=== PATIENT | female | born 1965 | race Caucasian/White ===

== ENCOUNTER 2021-11-13 04:00 | Emergency (ER) | payer SELFPAY ==
[~2021-11-13] VITALS: Ht 167.6 cm; Wt 75.0 kg
[2021-11-13 04:13] VITALS: TEMP 97.7
[2021-11-13 04:55] LABS: BASO # 0.1 K/mm3 (0.0-0.2); BASO % 0.8 % (0.0-2.0); EOS # 0.1 K/mm3 (0.0-0.7); EOS % 1.9 % (0.0-4.0); GRAN # 2.8 K/mm3 (1.4-6.5); GRAN % 43.3 % (42.2-75.2); HEMATOCRIT 40.4 % (37.0-47.0); HEMOGLOBIN 13.4 g/dl (12.5-16.0); LYMPH # 2.9 K/mm3 (1.2-3.4); LYMPH % 44.8 % (20.0-51.0); MEAN CELL VOLUME 87 fl (80.0-100.0); MEAN CORPUSCULAR HEMOGLOBIN 29 pg (27-31); MEAN CORPUSCULAR HGB CONC 33 g/dl (33.0-37.0); MEAN PLATELET VOLUME 10.3 fl (7.4-10.4); MONO # 0.6 K/mm3 (0.1-0.6); PLATELET COUNT 251 K/mm3 (130-400); RED BLOOD COUNT 4.62 M/mm3 (4.10-5.30); REDCELL DISTRIBUTION WIDTH-CV 13.2 % (11.5-14.5)
[2021-11-13 05:12] LABS: ALBUMIN 3.9 gm/dL (3.5-5.0); BILIRUBIN,TOTAL 0.9 mg/dL (0.2-1.2); CALCIUM 8.9 mg/dL (8.4-10.2); CREATININE, serum 0.69 mg/dL (0.57-1.11); POTASSIUM 3.1 mmol/L (3.5-4.5); TOTAL PROTEIN 6.3 gm/dL (6.2-8.1)
[2021-11-13] MEDS ORDERED: PROTONIX 40MG T40 MG PO (06:12)
[2021-11-13] MEDS ORDERED: NORCO 325 MG-51 TAB PO (06:12)
[2021-11-13] MEDS ORDERED: ZOFRAN ODT4 MG PO (06:12)
[2021-11-13 06:25] VITALS: BP 132/77; PULSE 57
== END 2021-11-13 06:30 | disposition home or self-care (01) ==
LOC: COL.ER 04:00
PROVIDERS: Personal Emergency Response Attendant
DX: R10.11 Right upper quadrant pain (principal); R11.0 Nausea; F17.290 Nicotine dependence, other tobacco product, uncomplicated; Z90.49 Acquired absence of other specified parts of digestive tract; Z28.310 Unvaccinated for COVID-19
CPT/HCPCS: J1885; J2405; J7030; Q9967

== ENCOUNTER 2021-11-16 16:11 | Emergency (ER) | payer SELFPAY ==
[~2021-11-16] VITALS: Ht 167.6 cm; Wt 75.0 kg
[~2021-11-16 16:11] MED LIST: NORCO 325 MG-51 TAB PO; PROTONIX 40MG T40 MG PO; ZOFRAN ODT4 MG PO
[2021-11-16 16:49] LABS: BASO # 0.1 K/mm3 (0.0-0.2); BASO % 1.1 % (0.0-2.0); EOS # 0.1 K/mm3 (0.0-0.7); EOS % 2.4 % (0.0-4.0); GRAN # 2.6 K/mm3 (1.4-6.5); GRAN % 48.7 % (42.2-75.2); HEMATOCRIT 44.9 % (37.0-47.0); HEMOGLOBIN 14.9 g/dl (12.5-16.0); LYMPH # 2.2 K/mm3 (1.2-3.4); LYMPH % 39.9 % (20.0-51.0); MEAN CELL VOLUME 87 fl (80.0-100.0); MEAN CORPUSCULAR HEMOGLOBIN 29 pg (27-31); MEAN CORPUSCULAR HGB CONC 33 g/dl (33.0-37.0); MEAN PLATELET VOLUME 10.5 fl (7.4-10.4); MONO # 0.4 K/mm3 (0.1-0.6); MONO % 7.7 % (1.7-9.3); PLATELET COUNT 278 K/mm3 (130-400); RED BLOOD COUNT 5.16 M/mm3 (4.10-5.30); REDCELL DISTRIBUTION WIDTH-CV 13.2 % (11.5-14.5)
[2021-11-16 17:01] LABS: ALANINE AMINOTRANSFERASE 23 U/L (0-55); ALKALINE PHOSPHATASE 50 U/L (40-150); ANION GAP 10 mmol/L (7-16); AST,SGOT 20 U/L (5-34); BILIRUBIN,TOTAL 0.9 mg/dL (0.2-1.2); BLOOD UREA NITROGEN 11 mg/dL (10-20); CALCIUM 9.5 mg/dL (8.4-10.2); CARBON DIOXIDE 25 mmol/L (22-29); CHLORIDE 108 mmol/L (98-107); GLUCOSE 94 mg/dL (70-99); SODIUM 143 mmol/L (136-145)
[2021-11-16 17:16] LABS: C-REACTIVE PROTEIN 0.24 mg/dL (0.00-0.50); LIPASE 15 U/L (8-78)
[2021-11-16] MEDS ORDERED: CYMBALTA 20MG20 MG PO (17:19)
[2021-11-16] MEDS ORDERED: CELEXA40 MG PO (17:20)
[2021-11-16] MEDS ORDERED: WELLBUTRIN 75MG75 MG PO (17:20)
[2021-11-16 17:21] LABS: TROPONIN-I < 0.010 ng/mL (0.00-0.033)
[2021-11-16] MEDS ORDERED: PRIL40 PO (17:21)
[2021-11-16] MEDS ORDERED: TOPAMAX 100MG100 M1 PO (17:21)
[2021-11-16] MEDS ORDERED: PREVACID 15MG15 M1 PO (17:22)
[2021-11-16] MEDS ORDERED: PEPCID 20MG TAB20 MG PO ×2 (17:22→17:23)
[2021-11-16] MEDS ORDERED: SINGULAIR 110 MG/TAB PO (17:23)
[2021-11-16] MEDS ORDERED: ATARAX 25MG25 MG/TAB PO (17:24)
[2021-11-16] MEDS ORDERED: FLONASE NASAL S16 GM NS (17:24)
[2021-11-16] MEDS ORDERED: ZYRTEC 10MG10 MG PO (17:25)
[2021-11-16] MEDS ORDERED: SUDANYL PE5 MG PO (17:25)
[2021-11-16] MEDS ORDERED: NATURAL POTASS595 MG PO (17:26)
[2021-11-16] MEDS ORDERED: MOTRIN 800800 MG/TAB PO (17:26)
[2021-11-16] MEDS ORDERED: ESTROVEN MAX400 MCG PO (17:27)
[2021-11-16] MEDS ORDERED: CARAFATE S1 GM/10 ML PO (20:07)
[2021-11-16 20:45] VITALS: BP 115/78; PULSE 59; TEMP 98.6
== END 2021-11-16 20:45 | disposition home or self-care (01) ==
LOC: COL.ER 16:11
PROVIDERS: Emergency Medicine
DX: R10.13 Epigastric pain (principal); R07.89 Other chest pain; F17.290 Nicotine dependence, other tobacco product, uncomplicated; Z90.49 Acquired absence of other specified parts of digestive tract; Z28.310 Unvaccinated for COVID-19
CPT/HCPCS: C9113; J2405; J7030

== ENCOUNTER → 2021-12-21 | Outpatient (CLI) | payer MEDICAID ==
[~2021-12-21] VITALS: Ht 167.6 cm; Wt 75.6 kg
[~2021-12-21] MED LIST changes: +ADIPEX-P37.5 MG PO; +ASHWAGANDHA500 MG PO; +ASPIRIN 81M81 MG/TA2 PO; +ATARAX 25MG25 MG/TAB PO; +BENTYL 10MG10 MG/CAP PO; +CARAFATE 1GM1 G PO; +CARAFATE S1 GM/10 ML PO; +CELEXA40 MG PO; +CYMBALTA 20MG20 MG PO; +ESTROVEN MAX400 MCG PO; +FLONASE NASAL S16 GM NS; +GLUCOSAMINE MSM1 TAB PO; +MAXZIDE-25MG TA1 TAB PO; +MOTRIN 800800 MG/TAB PO; +NATURAL POTASS595 MG PO; +PEPCID 20MG TAB20 MG PO; +PREVACID 15MG15 M1 PO; +PREVACID 30MG30 M1 PO; +PRIL40 PO; +PROVENTIL0.09 MG/A1 IH; +ROBAXIN 50500 MG/TAB PO; +SINGULAIR 110 MG/TAB PO; +SUDANYL PE5 MG PO; +TOPAMAX 100MG100 M1 PO; +TYLENOL 500MG500 MG PO; +ULTRAM 50MG TAB50 MG PO; +VIVELLE-DO0.0375 MG/ TD; +WELLBUTRIN 75MG75 MG PO; +ZOFRAN 4MG T4 MG/TAB PO; +ZYRTEC 10MG10 MG PO; +[UNRECOGNIZED DRUG - REMARK] PO
[2021-12-21 11:18] VITALS: BP 119/71; PULSE 79; TEMP 98.7
[2021-12-21 12:10] VITALS: BP 111/65; PULSE 76
[2021-12-21 12:11] VITALS: BP 116/69; PULSE 85
[2021-12-21 12:12] VITALS: BP 112/71; PULSE 84
[2021-12-21 12:13] VITALS: BP 118/72; PULSE 81
== END ==
LOC: COL.CARD 10:38
DX: R00.2 Palpitations (principal); R00.1 Bradycardia, unspecified; R06.02 Shortness of breath
CPT/HCPCS: A9500; J2785

== ENCOUNTER 2022-09-28 08:36 | Emergency (ER) | payer MEDICAID ==
[~2022-09-28] VITALS: Ht 167.6 cm; Wt 76.4 kg
[2022-09-28 08:42] VITALS: TEMP 98.1
[2022-09-28 09:29] LABS: BASO # 0.1 K/mm3 (0.0-0.2); BASO % 0.9 % (0.0-2.0); EOS # 0.2 K/mm3 (0.0-0.7); EOS % 2.7 % (0.0-4.0); GRAN # 4.2 K/mm3 (1.4-6.5); GRAN % 60.2 % (42.2-75.2); HEMATOCRIT 43.2 % (37.0-47.0); HEMOGLOBIN 14.4 g/dl (12.5-16.0); LYMPH # 1.9 K/mm3 (1.2-3.4); LYMPH % 27.2 % (20.0-51.0); MEAN CELL VOLUME 87 fl (80.0-100.0); MEAN CORPUSCULAR HEMOGLOBIN 29 pg (27-31); MEAN CORPUSCULAR HGB CONC 33 g/dl (33.0-37.0); MEAN PLATELET VOLUME 10.7 fl (7.4-10.4); MONO # 0.6 K/mm3 (0.1-0.6); MONO % 8.7 % (1.7-9.3); PLATELET COUNT 226 K/mm3 (130-400); RED BLOOD COUNT 4.94 M/mm3 (4.10-5.30); REDCELL DISTRIBUTION WIDTH-CV 13.2 % (11.5-14.5)
[2022-09-28 09:39] LABS: ALANINE AMINOTRANSFERASE 22 U/L (0-55); ALBUMIN 3.6 gm/dL (3.5-5.0); ALKALINE PHOSPHATASE 60 U/L (40-150); ANION GAP 10 mmol/L (7-16); AST,SGOT 20 U/L (5-34); BILIRUBIN,TOTAL 0.5 mg/dL (0.2-1.2); BLOOD UREA NITROGEN 11 mg/dL (10-20); C-REACTIVE PROTEIN 0.21 mg/dL (0.00-0.50); CALCIUM 9.3 mg/dL (8.4-10.2); CARBON DIOXIDE 23 mmol/L (22-29); CHLORIDE 107 mmol/L (98-107); CREATININE, serum 0.69 mg/dL (0.57-1.11); GLUCOSE 99 mg/dL (70-99); MAGNESIUM 1.6 mg/dL (1.6-2.6); POTASSIUM 3.8 mmol/L (3.5-4.5); SODIUM 140 mmol/L (136-145); TOTAL PROTEIN 6.7 gm/dL (6.2-8.1)
[2022-09-28 09:46] LABS: TROPONIN-I < 0.010 ng/mL (0.00-0.033)
[2022-09-28 09:54] LABS: PROTHROMBIN TIME 11.2 SECONDS (9.7-12.8)
[2022-09-28 09:57] LABS: PARTIAL THROMBOPLASTIN TIME 32.7 SECONDS (26.0-37.0)
[2022-09-28 11:07] VITALS: BP 125/89; PULSE 66
[2022-09-28 13:23] LABS: COLLECTION METHOD CLEAN CATCH
[2022-09-28 13:37] LABS: PH 6.5 (5.0-8.5); URINE APPEARANCE Clear (CLEAR/HAZY); URINE BLOOD Negative (NEGATIVE); URINE COLOR Yellow (YELLOW); URINE GLUCOSE Negative (NEGATIVE); URINE KETONE Negative (NEGATIVE); URINE NITRATE Negative (NEGATIVE); URINE PROTEIN(semi-quant) Negative (NEGATIVE); URINE UROBILINOGEN 0.2 E.U/dL (0.2-1.0)
[2022-09-28 13:42] LABS: SQUAMOUS EPITHELIAL 0-2 /hpf (0-10); URINE BACTERIA None Seen /hpf (NONE SEEN); URINE RBC None Seen /hpf (0-2)
== END 2022-09-28 11:05 | disposition home or self-care (01) ==
LOC: COL.ER 08:36
PROVIDERS: Family Medicine
DX: R53.83 Other fatigue (principal); R07.2 Precordial pain; R51.9 Headache, unspecified; R05.9 Cough, unspecified; M79.643 Pain in unspecified hand; M79.673 Pain in unspecified foot; F17.210 Nicotine dependence, cigarettes, uncomplicated; F17.290 Nicotine dependence, other tobacco product, uncomplicated; Z28.310 Unvaccinated for COVID-19